=== PATIENT | male | born 1955 | race Caucasian/White ===

== ENCOUNTER 2016-06-09 20:05 | Emergency (ER) | payer MEDICARE ==
--- NOTE | 2016-06-09 20:49 | Emergency Department Record ---
History of Present Illness - General Chief complaint: Rash Stated complaint: SORES ON HANDS Time Seen by Provider: 06/09/16 20:43 Source: Patient Mode of Arrival: Ambulatory - History of Present Illness Initial comments: The patient states he gets this rash on his hands intermittently which is itchy and occasionally peels. HE sees Dr. Faust [employer] [employer] Gl[employer] Operator for it, has cream at home, but when it flares up like this he usually gets a shot of steroids and a prescription of prednisone to taper. He has the cream at home and will start using it and call his [employer] Gl[employer] Operator for a recheck. His tetanus is UTD. Onset/Timin -: Days(s) Hx Tetanus Toxoid Vaccination: Yes Year of Tetanus Vaccination: unsure Location: L hand, R hand Context: Other Associated symptoms: Itching Treatments Prior to Arrival: OTC topical medication - Related Data Home Medications Medication Instructions Recorded Confirmed Last Taken Alprazolam [Xanax Xr] 5 mg PO QID 05/06/14 06/09/16 10/28/15 Hydrocodone/Acetaminophen [Vicodin 1 tab PO Q6H PRN 10/20/14 06/09/16 10/28/15 5mg/300mg] Citalopram Hydrobromide 20 mg PO DAILY 10/22/15 06/09/16 10/28/15 [Citalopram HBr] Albuterol Sulfate [Proair Hfa] 1 - 2 puff IH .EVERY 4-6 HOURS PRN 10/31/1506/09 Unknown Previous Rx's Medication Instructions Recorded Triamcinolone Acet Cream [Kenalog 1 apply TP BID #30 tube 06/23/15 Cream] Sucralfate [Carafate] 1 gm PO QID #28 tablet 10/30/15 Ondansetron [Zofran Odt] 4 mg PO Q8H PRN #30 tab.rapdis 11/01/15 Pantoprazole Sodium [Protonix] 40 mg PO DAILY #30 tablet. 11/01/15 Prednisone [Prednisone 20Mg] 20 mg PO DAILY #20 tab 06/09/16 Allergies Allergy/AdvReac Type Severity Reaction Status Date / Time Penicillins Allergy Unknown RASH Verified 01/06/15 13:19 Sulfa (Sulfonamide Allergy RASH Verified 01/06/15 13:19 Antibiotics) Travel Screening - Travel/Exposure Within Last 30 Days Have you traveled within the last 30 days?: No Review of Systems Reviewed: No additional complaints except as noted below Constitutional: Reports: As per HPI. Denies: Chills, Fever, Malaise, Night sweats, Weakness, Weight change Eyes: Reports: As per HPI. Denies: Eye discharge, Eye pain, Photophobia, Vision change ENT: Reports: As per HPI. Denies: Congestion, Dental pain, Ear pain, Epistaxis , Hearing loss, Throat pain Respiratory: Reports: As per HPI. Denies: Cough, Dyspnea, Hemoptysis, Stridor, Wheezes Cardiovascular: Reports: As per HPI. Denies: Arrhythmia, Chest pain, Dyspnea on exertion, Edema, Murmurs, Orthopnea, Palpitations, Paroxysmal nocturnal dyspnea, Rheumatic Fever, Syncope Endocrine: Reports: As per HPI. Denies: Fatigue, Heat or cold intolerance, Polydipsia, Polyuria Gastrointestinal: Reports: As per HPI. Denies: Abdominal pain, Constipation, Diarrhea, Hematemesis, Hematochezia, Melena, Nausea, Vomiting Genitourinary: Reports: As per HPI. Denies: Dysuria, Frequency, Hematuria, Incontinence, Retention, Testicular pain, Testicular mass, Urgency Musculoskeletal: Reports: As per HPI. Denies: Arthralgia, Back pain, Gout, Joint swelling, Myalgia, Neck pain Skin: Reports: As per HPI. Denies: Bruising, Change in color, Change in hair/ nails, Lesions, Pruritus, Rash Neurological: Reports: As per HPI. Denies: Abnormal gait, Confusion, Headache, Numbness, Paresthesias, Seizure, Tingling, Tremors, Vertigo, Weakness Psychiatric: Reports: As per HPI. Denies: Anxiety, Auditory hallucinations, Depression, Homicidal thoughts, Suicidal thoughts, Visual hallucinations Hematological/Lymphatic: Reports: As per HPI. Denies: Anemia, Blood Clots, Easy bleeding, Easy bruising, Swollen glands Past Medical History - SOCIAL HISTORY Smoking Status: Never smoker Alcohol Use: None Drug Use: None - RESPIRATORY Hx Respiratory Disorders: Yes Hx Asthma: Yes - CARDIOVASCULAR Hx Cardio Disorders: No - NEURO Hx Neuro Disorders: No - GI Hx GI Disorders: Yes Hx Abdominal Pain: Yes (epigastric) Hx Reflux: Yes Hx Nausea/Vomiting: Yes Hx Wt Loss/Wt Gain: Yes Comment:: down 9 pounds over last two weeks - Hx Genitourinary Disorders: No - ENDOCRINE Hx Endocrine Disorders: No Hx Diabetes: No Hx Thyroid Disease: No - MUSCULOSKELETAL Hx Musculoskeletal Disorders: Yes Hx Arthritis: Yes (Bilateral knee) - PSYCH Hx Psych Problems: Yes Hx Anxiety: Yes Hx Depression: Yes - HEMATOLOGY/ONCOLOGY Hx Hematology/Oncology Disorders: No Family Medical History Any Significant Family History?: Yes Hx Cancer: Mother, Grandparents Hx Heart Disease: Father, Brother/Sister Physical Exam - General General Appearance: Alert, Oriented x3, Cooperative, No acute distress - Head Head exam: Normal inspection - Eye Eye exam: Normal appearance, PERRL Pupils: Normal accommodation - ENT ENT exam: Normal exam, Mucous membranes moist, Normal external ear exam, Normal orophraynx, TM's normal bilaterally Ear exam: Normal external inspection. negative: External canal tenderness Nasal Exam: Normal inspection. negative: Discharge, Sinus tenderness Mouth exam: Normal external inspection, Tongue normal Teeth exam: Normal inspection. negative: Dental caries Throat exam: Normal inspection. negative: Tonsillar erythema, Tonsillar exudate - Neck Neck exam: Normal inspection, Full ROM. negative: Tenderness - Respiratory Respiratory exam: Normal lung sounds bilaterally. negative: Respiratory distress - Cardiovascular Cardiovascular Exam: Regular rate, Normal rhythm, Normal heart sounds - GI/Abdominal GI/Abdominal exam: Soft, Normal bowel sounds. negative: Tenderness - Rectal Rectal exam: Deferred - exam: Deferred - Extremities Extremities exam: Normal inspection, Full ROM, Normal capillary refill, Other ( pruritic rash with peeling on right hand, no cellulitis, sparing the proximal forearms. ). negative: Tenderness - Back Back exam: Reports: Normal inspection, Full ROM. Denies: Muscle spasm, Rash noted, Tenderness - Neurological Neurological exam: Alert, Normal gait, Oriented X3, Reflexes normal - Psychiatric Psychiatric exam: Normal affect, Normal mood - Skin Skin exam: Dry, Intact, Normal color, Warm Course Vital Signs 06/09/16 20:28 Temperature 98.3 F Pulse Rate 101 H Respiratory 18 Rate Blood Pressure 125/94 Pulse Ox 95 Disposition Disposition: Discharge Clinical Impression: Vesicular hand eczema Disposition: Home, Self-Care Condition: (1) Good Instructions: Acute Rash (ED), Urticaria (ED) Additional Instructions: Apply prescription cream to hands as directed. Follow up with your [employer] Gl[employer] Operator as before. Take prednisone taper as instructed. Prescriptions: Prednisone [Prednisone 20Mg] 20 mg PO DAILY #20 tab Forms: Patient Portal Access
[2016-06-09] MEDS ORDERED: METHYLPREDNISOLONE PF 125MG/VIAL IM ONE (20:51)
== END 2016-06-09 21:10 | disposition home or self-care (01) ==
LOC: ER 20:05
DX: L30.1 Dyshidrosis [pompholyx] (principal)
CPT/HCPCS: 96372; 99283; J2930

== ENCOUNTER 2017-03-28 03:10 | Emergency (ER) | payer MEDICARE ==
--- NOTE | 2017-03-28 03:32 | Emergency Department Record ---
History of Present Illness - General Chief complaint: Flu Like Symptoms Stated complaint: FLU LIKE SYMPTOMS Time Seen by Provider: 03/28/17 03:28 Source: Patient Mode of Arrival: Ambulatory Limitations: No limitations - History of Present Illness Initial comments: 61 yo male presents to ED for evaluation of nausea, chills, and body aches that began last evening. Patient denies abdominal pain symptoms or productive cough symptoms, denies rash symptoms. Patient denies chest pain or difficultly in breathing symptoms. Patient reports "I think I have the flu". MD Complaint: Generalized weakness Onset/Timin -: Hour(s) Location: Generalized Severity: Moderate Quality: Aching Consistency: Constant Improves with: None Context: History of similar, Other - Zeina Coma Scale Eye Response: (4) Open spontaneously Motor Response: (6) Obeys commands Verbal Response: (5) Oriented Ze[place] Total: 15 - Related Data Home Medications Medication Instructions Recorded Confirmed Last Taken Levothyroxine Sodium 100 mcg PO QAM 03/28/17 03/28/17 03/28/17 Previous Rx's Medication Instructions Recorded Clindamycin HCl 300 mg PO QID #28 capsule 03/28/17 Allergies Allergy/AdvReac Type Severity Reaction Status Date / Time Penicillins Allergy Unknown RASH Verified 01/06/15 13:19 Sulfa (Sulfonamide Allergy RASH Verified 01/06/15 13:19 Antibiotics) Travel Screening - Travel/Exposure Within Last 30 Days Have you traveled within the last 30 days?: No - Travel Symptoms Symptom Screening: Headache, Weakness Review of Systems Constitutional: Reports: Chills, Malaise, Weakness. Denies: Fever, Night sweats Eyes: Denies: Eye discharge, Eye pain ENT: Denies: Congestion, Ear pain, Epistaxis Respiratory: Denies: Cough, Dyspnea Cardiovascular: Denies: Chest pain, Dyspnea on exertion Endocrine: Denies: Fatigue, Heat or cold intolerance Gastrointestinal: Reports: Nausea. Denies: Vomiting Genitourinary: Denies: Incontinence, Retention Musculoskeletal: Denies: Arthralgia, Back pain, Gout, Joint swelling Skin: Denies: Bruising, Change in color Neurological: Denies: Abnormal gait, Confusion, Headache, Seizure Psychiatric: Denies: Anxiety Hematological/Lymphatic: Denies: Anemia, Blood Clots Past Medical History - SOCIAL HISTORY Smoking Status: Never smoker Alcohol Use: None Drug Use: None - RESPIRATORY Hx Respiratory Disorders: Yes Hx Asthma: Yes - CARDIOVASCULAR Hx Cardio Disorders: No - NEURO Hx Neuro Disorders: No - GI Hx GI Disorders: Yes Hx Abdominal Pain: Yes (epigastric) Hx Reflux: Yes Hx Nausea/Vomiting: Yes Hx Wt Loss/Wt Gain: Yes - Hx Genitourinary Disorders: No - ENDOCRINE Hx Endocrine Disorders: No Hx Diabetes: No Hx Thyroid Disease: No - MUSCULOSKELETAL Hx Musculoskeletal Disorders: Yes Hx Arthritis: Yes (Bilateral knee) - PSYCH Hx Psych Problems: Yes Hx Anxiety: Yes Hx Depression: Yes - HEMATOLOGY/ONCOLOGY Hx Hematology/Oncology Disorders: No Family Medical History Any Significant Family History?: Yes Hx Cancer: Mother, Grandparents Hx Heart Disease: Father, Brother/Sister Physical Exam - General General Appearance: Alert, Oriented x3, Cooperative, Mild distress Limitations: No limitations - Head Head exam: Atraumatic, Normocephalic, Normal inspection Head exam detail: negative: Abrasion, Contusion, Shaw's sign, General tenderness, Hematoma, Laceration - Eye Eye exam: Normal appearance. negative: Conjunctival injection, Periorbital swelling, Periorbital tenderness, Scleral icterus - ENT Ear exam: negative: Auricular hematoma, Auricular trauma Nasal Exam: negative: Active bleeding, Discharge, Dried blood, Foreign body Mouth exam: negative: Drooling, Laceration, Muffled voice, Tongue elevation Teeth exam: Dental caries - Neck Neck exam: Normal inspection. negative: Meningismus, Tenderness - Respiratory Respiratory exam: Normal lung sounds bilaterally. negative: Rales, Respiratory distress, Rhonchi, Stridor - Cardiovascular Cardiovascular Exam: Normal rhythm, Normal heart sounds, Tachycardia - GI/Abdominal GI/Abdominal exam: Soft. negative: Rebound, Rigid, Tenderness - Rectal Rectal exam: Deferred - exam: Deferred - Extremities Extremities exam: Normal inspection. negative: Calf tenderness, Pedal edema, Tenderness - Back Back exam: Denies: CVA tenderness (R), CVA tenderness (L) - Neurological Neurological exam: Alert, Normal gait, Oriented X3 - Psychiatric Psychiatric exam: Normal affect, Normal mood - Skin Skin exam: Normal color. negative: Abrasion Type of lesion: negative: abrasion Course Vital Signs 03/28/17 03:17 Temperature 98.7 F Pulse Rate [ 115 H Pulse Ox Probe] Respiratory 16 Rate Blood Pressure 125/91 [Left Arm] Pulse Ox 97 - Reevaluation(s) Reevaluation #1: 03/28/17 03:51 EKG: Sinus tachycardia 103 LAD, normal intervals No acute ST-T wave changes are present Overall similar to 01/31/2008. Reevaluation #2: 03/28/17 04:04 Labs reviewed, WBC 18.8 with 94% neutrophils, influenza appears negative. UA pending, labs are otherwise grossly unremarkable for an acute process. Pulse is down to 105. Repeat examination reveals a non-tender abdominal examination and no evidence for cellulitis or septic joint on examination. Will continue to observe. Reevaluation #3: 03/28/17 04:46 UA reviewed and appears negative for infection, cultures have been drawn. Patient reassessed and reports that he is feeling much better. I discussed admission to administer BS antibiotics via IV as the source of the patient's infection is yet unknown and cultures are pending. Patient declined admission stating that he wants to go home, but is willing to return in 12-24 hours for reassessment. Will initiate treatment with Clindamcyin as the patient is allergic to PCN (augmentin was 1st choice), and have the patient return for re- evaluation in 12-24 hours as discussed. Patient agrees with plan as discussed. Medical Decision Making - Lab Data Result diagrams: 03/28/17 03:35 03/28/17 03:35 Disposition Disposition: Discharge Clinical Impression: Myalgia Fever Qualifiers: Fever type: unspecified Qualified Code(s): R50.9 - Fever, unspecified Leukocytosis Qualifiers: Leukocytosis type: unspecified Qualified Code(s): D72.829 - Elevated white blood cell count, unspecified Disposition: Home, Self-Care Condition: (2) Stable Instructions: Fever in Adults (ED) Additional Instructions: Return to ED in 12-24 hours for re-evaluation of your fever symptoms. Clindamycin as directed. Follow-up with your family doctor in 1-3 days as directed. Prescriptions: Clindamycin HCl 300 mg PO QID #28 capsule Forms: Patient Portal Access Time of Disposition: 04:51 Quality - Quality Measures Quality Measures: N/A - Blood Pressure Screening Does Patient Have Any of the Following: No Blood Pressure Classification: Pre-Hypertensive BP Reading Systolic Measurement: 116 Diastolic Measurement: 84 Screening for High Blood Pressure: < Pre-Hypertensive BP, F/U Documented > [ G8950] Pre-Hypertensive Follow-up Interventions: Referral to alternative/primary care provider.
[2017-03-28] MEDS: ONDANSETRON HCL IV 4 MG/2 ML VIAL IVP ONE (03:37)
[2017-03-28] MEDS: 0.9 % SODIUM CHLORIDE 1000ML 1,000 ML IV SCH ×2 (03:37→04:45)
[2017-03-28 03:41] LABS: BASO % 0.2 % (0-6); EOS % 1.2 % (0-6); HEMATOCRIT 41.1 % (42.0-52.0); HEMOGLOBIN 13.6 gm/dl (14.0-18.0); MEAN CELL VOLUME 89.5 fl (81-97); MEAN CORPUSCULAR HEMOGLOBIN 29.6 pg (27-33); MEAN CORPUSCULAR HGB CONC 33.1 g/dl (32-36); MEAN PLATELET VOLUME 8.5 fl (7.4-10.4); MONO % 4.3 % (0-9); PLATELET COUNT 287 K/uL (130-400); RED BLOOD COUNT 4.59 M/uL (4.40-5.70); RED CELL DISTRIBUTION WIDTH 14.6 % (11.5-14.5); WHITE BLOOD COUNT W/O DIFF 18.8 K/uL (4.2-12.2)
[2017-03-28 03:54] LABS: INFLUENZA A NEGATIVE (NEGATIVE); INFLUENZA B NEGATIVE (NEGATIVE)
[2017-03-28 03:57] LABS: BLOOD UREA NITROGEN 16 mg/dL (8-23); CREATININE 1.1 mg/dL (0.7-1.2); EST GLOMERULAR FILTRATION RATE > 60 mL/min; GLUCOSE,RANDOM 115 mg/dL (74-109); TOTAL PROTEIN 7.2 g/dL (6.6-8.7)
[2017-03-28 04:00] LABS: ALB/GLOB RATIO 1.3 (1.1-1.8); ALBUMIN 4.1 g/dL (4.0-5.0); ALKALINE PHOSPHATASE 74 U/L (40-129); ALT/SGPT 21 U/L (<41); AST/SGOT 25 U/L (10.0-50.0)
[2017-03-28] MEDS: ACETAMINOPHEN 500 MG TABLET PO ONE (04:09)
[2017-03-28 04:15] LABS: URINE APPEARANCE CLEAR; URINE BILIRUBIN SMALL (NEGATIVE); URINE BLOOD TRACE-I (NEGATIVE); URINE COLOR YELLOW; URINE GLUCOSE (UA) NEGATIVE (NEGATIVE); URINE KETONE NEGATIVE (NEGATIVE); URINE LEUKOCYTE ESTERASE NEGATIVE (NEGATIVE); URINE NITRITE NEGATIVE (NEGATIVE); URINE PROTEIN NEGATIVE (NEGATIVE); URINE UROBILINOGEN 0.2 E.U./dL (0.20 - 1.00)
[2017-03-28 04:22] LABS: URINE BACTERIA NONE SEEN; URINE EPITHELIAL CELLS 0 - 2 (FEW); URINE RBC 0 - 2 (NONE SEEN); URINE WBC 0 - 2 (0-2/hpf)
[2017-03-28] MEDS: CLINDAMYCIN 600MG/50ML PREMIX 600 MG/50 ML BAG IVPB ONE (04:45)
--- NOTE | 2017-03-29 09:15 | RADIOLOGY REPORT ---
EXAM: CHEST, TWO VIEWS HISTORY: FLU LIKE SYMPTOMS FOR ONE DAY. TECHNIQUE: Two views of the chest were obtained. Comparison: Chest x-ray 10/30/15. FINDINGS: Fine linear scarring left base. The lungs are clear. The cardiac silhouette, diaphragm, and osseous structures are unremarkable for age . IMPRESSION: NEGATIVE CHEST EXAMINATION. JOB NUMBER: [id number] MTDD
== END 2017-03-28 05:35 | disposition home or self-care (01) ==
LOC: ER 03:10
DX: R50.9 Fever, unspecified (principal); M79.1 Myalgia; R53.1 Weakness; R05 Cough; D72.829 Elevated white blood cell count, unspecified; R11.0 Nausea; R51 Headache; L02.224 Furuncle of groin; B34.9 Viral infection, unspecified; R19.7 Diarrhea, unspecified
CPT/HCPCS: 99283 ×2; 99284 ×2; 96365; 96375; 83605; 80048; 80053; 81001; 87400; 85027; 71020; 93005; 93010; J2405; J7030

== ENCOUNTER 2017-03-28 16:21 | Emergency (ER) | payer MEDICARE ==
--- NOTE | 2017-03-28 16:49 | Emergency Department Record ---
History of Present Illness - General Chief Complaint: Recheck - Other Stated Complaint: RETURN CHECK Time Seen by Provider: 03/28/17 16:34 Source: Patient - History of Present Illness Initial Comments: patient here for a recheck of his fever and he is feeling better today but having diarrhea times two stools and today he is drinking fluids and he ate eggs for breakfast and today at noon he took two tylenol pills. No headache and no congestion and no cough. No vomiting. Patient hasn't picked up his clindamycin pills yet. he left here at 5:30 am today. Patient has a small ingrown hair left groin no abscess red and looks like it drained already spontaneously. Teeth are in bad repair Onset/Timin -: Days(s) Initial Visit For: Other Symptoms Since Prior Visit: No new symptoms Associated Symptoms: Fever - Related Data Previous Rx's Medication Instructions Recorded Clindamycin HCl 300 mg PO QID #28 capsule 03/28/17 Allergies Allergy/AdvReac Type Severity Reaction Status Date / Time Penicillins Allergy Unknown RASH Verified 03/28/17 16:28 Sulfa (Sulfonamide Allergy RASH Verified 03/28/17 16:28 Antibiotics) Travel Screening - Travel/Exposure Within Last 30 Days Have you traveled within the last 30 days?: No Review of Systems Reviewed: No additional complaints except as noted below Constitutional: Reports: As per HPI, Weakness. Denies: Chills, Fever, Malaise, Night sweats, Weight change Eyes: Reports: As per HPI. Denies: Eye discharge, Eye pain, Photophobia, Vision change ENT: Reports: As per HPI. Denies: Congestion, Dental pain, Ear pain, Epistaxis , Hearing loss, Throat pain Respiratory: Reports: As per HPI. Denies: Cough, Dyspnea, Hemoptysis, Stridor, Wheezes Cardiovascular: Reports: As per HPI. Denies: Arrhythmia, Chest pain, Dyspnea on exertion, Edema, Murmurs, Orthopnea, Palpitations, Paroxysmal nocturnal dyspnea, Rheumatic Fever, Syncope Endocrine: Reports: As per HPI. Denies: Fatigue, Heat or cold intolerance, Polydipsia, Polyuria Gastrointestinal: Reports: As per HPI, Diarrhea. Denies: Abdominal pain, Constipation, Hematemesis, Hematochezia, Melena, Nausea, Vomiting Genitourinary: Reports: As per HPI. Denies: Dysuria, Frequency, Hematuria, Incontinence, Retention, Testicular pain, Testicular mass, Urgency Musculoskeletal: Reports: As per HPI. Denies: Arthralgia, Back pain, Gout, Joint swelling, Myalgia, Neck pain Skin: Reports: As per HPI. Denies: Bruising, Change in color, Change in hair/ nails, Lesions, Pruritus, Rash Neurological: Reports: As per HPI. Denies: Abnormal gait, Confusion, Headache, Numbness, Paresthesias, Seizure, Tingling, Tremors, Vertigo, Weakness Psychiatric: Reports: As per HPI. Denies: Anxiety, Auditory hallucinations, Depression, Homicidal thoughts, Suicidal thoughts, Visual hallucinations Hematological/Lymphatic: Reports: As per HPI. Denies: Anemia, Blood Clots, Easy bleeding, Easy bruising, Swollen glands Past Medical History - SOCIAL HISTORY Smoking Status: Never smoker Alcohol Use: None Drug Use: None - RESPIRATORY Hx Respiratory Disorders: Yes Hx Asthma: Yes - CARDIOVASCULAR Hx Cardio Disorders: No - NEURO Hx Neuro Disorders: No - GI Hx GI Disorders: Yes Hx Abdominal Pain: Yes (epigastric) Hx Reflux: Yes Hx Nausea/Vomiting: Yes Hx Wt Loss/Wt Gain: Yes - Hx Genitourinary Disorders: No - ENDOCRINE Hx Endocrine Disorders: No Hx Diabetes: No Hx Thyroid Disease: No - MUSCULOSKELETAL Hx Musculoskeletal Disorders: Yes Hx Arthritis: Yes (Bilateral knee) - PSYCH Hx Psych Problems: Yes Hx Anxiety: Yes Hx Depression: Yes - HEMATOLOGY/ONCOLOGY Hx Hematology/Oncology Disorders: No Family Medical History Any Significant Family History?: Yes Hx Cancer: Mother, Grandparents Hx Heart Disease: Father, Brother/Sister Physical Exam - General General Appearance: Alert, Oriented x3, Cooperative, No acute distress - Head Head exam: Normal inspection - Eye Eye exam: Normal appearance, PERRL Pupils: Normal accommodation - ENT ENT exam: Normal exam, Mucous membranes moist, Normal external ear exam, Normal orophraynx, TM's normal bilaterally Ear exam: Normal external inspection. negative: External canal tenderness Nasal Exam: Normal inspection. negative: Discharge, Sinus tenderness Mouth exam: Normal external inspection, Tongue normal Teeth exam: Normal inspection. negative: Dental caries Throat exam: Normal inspection. negative: Tonsillar erythema, Tonsillar exudate - Neck Neck exam: Normal inspection, Full ROM. negative: Tenderness - Respiratory Respiratory exam: Normal lung sounds bilaterally. negative: Respiratory distress - Cardiovascular Cardiovascular Exam: Regular rate, Normal rhythm, Normal heart sounds - GI/Abdominal GI/Abdominal exam: Soft, Normal bowel sounds. negative: Tenderness - Rectal Rectal exam: Deferred - exam: Deferred - Extremities Extremities exam: Normal inspection, Full ROM, Normal capillary refill. negative: Tenderness - Back Back exam: Reports: Normal inspection, Full ROM. Denies: Muscle spasm, Rash noted, Tenderness - Neurological Neurological exam: Alert, Normal gait, Oriented X3, Reflexes normal - Psychiatric Psychiatric exam: Normal affect, Normal mood - Skin Skin exam: Other (small furuncle in the left groin, no cellulitis and scab on top) Course Vital Signs 03/28/17 16:29 Temperature 97.7 F Pulse Rate 84 Respiratory 20 Rate Blood Pressure 118/73 Pulse Ox 98 - Reevaluation(s) Reevaluation #1: patient is doing better 03/28/17 17:23 Medical Decision Making - Data Complexity MDM Data: Labs Ordered and/or Reviewed (WBC down to 16,000), X-Ray Ordered and/ or Reviewed (reviewed chest xray from 3 am negative) - Lab Data Result diagrams: 03/28/17 16:55 03/28/17 16:55 Disposition Clinical Impression: Viral syndrome, Furuncle Disposition: Home, Self-Care Condition: (1) Good Instructions: Acute Diarrhea (ED) Additional Instructions: follow up with Dr. 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
[2017-03-28 17:01] LABS: HEMATOCRIT 37.3 % (42.0-52.0); HEMOGLOBIN 12.2 gm/dl (14.0-18.0); MEAN CELL VOLUME 89.9 fl (81-97); MEAN CORPUSCULAR HEMOGLOBIN 29.3 pg (27-33); MEAN CORPUSCULAR HGB CONC 32.7 g/dl (32-36); MEAN PLATELET VOLUME 8.5 fl (7.4-10.4); PLATELET COUNT 263 K/uL (130-400); RED BLOOD COUNT 4.15 M/uL (4.40-5.70); RED CELL DISTRIBUTION WIDTH 14.7 % (11.5-14.5)
[2017-03-28 17:20] LABS: BLOOD UREA NITROGEN 15 mg/dL (8-23); EST GLOMERULAR FILTRATION RATE > 60 mL/min; GLUCOSE,RANDOM 111 mg/dL (74-109)
== END 2017-03-28 17:39 | disposition home or self-care (01) ==
LOC: ER 16:21
DX: B34.9 Viral infection, unspecified (principal); R19.7 Diarrhea, unspecified; L02.224 Furuncle of groin
CPT/HCPCS: 80048; 85027

== ENCOUNTER 2019-03-17 04:05 | Emergency (ER) | payer MEDICARE ==
[2019-03-17] MEDS ORDERED: ONDANSETRON HCL IV 4 MG/2 ML VIAL IVP ONE (04:25)
--- NOTE | 2019-03-17 04:30 | Emergency Department Record ---
History of Present Illness - General Chief Complaint: Dizziness Stated Complaint: DOESNT FEEL GOOD Time Seen by Provider: 03/17/19 04:24 Source: Patient Mode of Arrival: Ambulatory Limitations: No limitations - History of Present Illness Initial Comments: 63 yo male presents to ED for evaluation of nausea symptoms that he awoke with 1 hour ago, denies pain, vomiting, or loose stools. Patient reports a history of "stomach problems" that he takes a pill for, cannot provide further detail. Patient denies history of abdominal surgery, denies chest pain or diaphoresis. Patient denies flank pain or urinary symptoms. MD Complaint: Other (Nausea) Onset/Timin -: Hour(s) Timing: Awoke with symptoms History of Same: No History of Trauma: No Severity: Moderate Improves With: Nothing Worsens With: Nothing Associated Symptoms: Denies other symptoms - Zeina Coma Scale Eye Response: (4) Open spontaneously Motor Response: (6) Obeys commands Verbal Response: (5) Oriented Zeina Total: 15 - Related Data Allergies Allergy/AdvReac Type Severity Reaction Status Date / Time Penicillins Allergy Unknown RASH Verified 03/28/17 16:28 Sulfa (Sulfonamide Allergy RASH Verified 03/28/17 16:28 Antibiotics) Travel Screening - Travel/Exposure Within Last 30 Days Have you traveled within the last 30 days?: No - Travel/Exposure Within Last Year Have you traveled outside the [place] in the last year?: No - Additonal Travel Details Have you been exposed to anyone with a communicable illness?: No - Travel Symptoms Symptom Screening: None Review of Systems Constitutional: Denies: Chills, Fever, Malaise, Night sweats Eyes: Denies: Eye discharge, Eye pain ENT: Denies: Congestion, Ear pain, Epistaxis Respiratory: Denies: Cough, Dyspnea Cardiovascular: Denies: Chest pain, Dyspnea on exertion Endocrine: Denies: Fatigue, Heat or cold intolerance Gastrointestinal: Reports: Abdominal pain, Nausea. Denies: Constipation, Vomiting Genitourinary: Denies: Incontinence, Retention Musculoskeletal: Denies: Arthralgia, Back pain Skin: Denies: Bruising, Change in color Neurological: Denies: Abnormal gait, Confusion, Headache, Seizure Psychiatric: Denies: Anxiety Hematological/Lymphatic: Denies: Anemia, Blood Clots Past Medical History - SOCIAL HISTORY Smoking Status: Never smoker Alcohol Use: None Drug Use: None - RESPIRATORY Hx Respiratory Disorders: Yes Hx Asthma: Yes - CARDIOVASCULAR Hx Cardio Disorders: No - NEURO Hx Neuro Disorders: No - GI Hx GI Disorders: Yes Hx Abdominal Pain: Yes (epigastric) Hx Reflux: Yes Hx Nausea/Vomiting: Yes Hx Wt Loss/Wt Gain: Yes - Hx Genitourinary Disorders: No - ENDOCRINE Hx Endocrine Disorders: No Hx Diabetes: No Hx Thyroid Disease: No - MUSCULOSKELETAL Hx Musculoskeletal Disorders: Yes Hx Arthritis: Yes (Bilateral knee) - PSYCH Hx Psych Problems: Yes Hx Anxiety: Yes Hx Depression: Yes - HEMATOLOGY/ONCOLOGY Hx Hematology/Oncology Disorders: No Family Medical History Any Significant Family History?: Yes Hx Cancer: Mother, Grandparents Hx Heart Disease: Father, Brother/Sister Physical Exam - General General Appearance: Alert, Oriented x3, Cooperative, Mild distress Limitations: No limitations - Head Head exam: Atraumatic, Normocephalic, Normal inspection Head exam detail: negative: Abrasion, Contusion, Shaw's sign, General tenderness, Hematoma, Laceration - Eye Eye exam: Normal appearance. negative: Conjunctival injection, Periorbital swelling, Periorbital tenderness, Scleral icterus - ENT Ear exam: negative: Auricular hematoma, Auricular trauma Nasal Exam: negative: Active bleeding, Discharge, Dried blood, Foreign body Mouth exam: negative: Drooling, Laceration, Muffled voice, Tongue elevation - Neck Neck exam: Normal inspection. negative: Meningismus, Tenderness - Respiratory Respiratory exam: Normal lung sounds bilaterally. negative: Rales, Respiratory distress, Rhonchi, Stridor - Cardiovascular Cardiovascular Exam: Regular rate, Normal rhythm, Normal heart sounds - GI/Abdominal GI/Abdominal exam: Soft. negative: Rebound, Rigid, Tenderness - Rectal Rectal exam: Deferred - exam: Deferred - Extremities Extremities exam: Normal inspection. negative: Pedal edema, Tenderness - Back Back exam: Denies: CVA tenderness (R), CVA tenderness (L) - Neurological Neurological exam: Alert, Normal gait, Oriented X3 - Psychiatric Psychiatric exam: Normal affect, Normal mood - Skin Skin exam: Normal color. negative: Abrasion Type of lesion: negative: abrasion Course Vital Signs 03/17/19 04:14 Temperature 99.1 F Pulse Rate [ 110 H Left] Respiratory 20 Rate Blood Pressure 169/81 [Left Arm] Pulse Ox 98 - Reevaluation(s) Reevaluation #1: 03/17/19 06:01 Laboratory studies were reviewed and appear grossly unremarkable for an acute process except for the following: WBC 18.7 with 95% Neutrophils Hgb 12 Influenza negative 0.9% NS 1 Liter ordered to infuse Blood cultures ordered CXR ordered. Temperature increased to 101.5 Motrin 800 mg/Tylenol 1000 mg ordered as well. Reevaluation #2: 03/17/19 06:03 CT Abdomen and Pelvis: No acute process 03/17/19 06:09 Patient was updated on his CT imaging result and laboratory study results. Patient reports that he needs to leave at this time to go to [place] "as I need to see someone", "my girlfriend stepped out on me". Following discussion with the patient regarding further evaluation and treatment for his fever, patient reports that they wants to leave AMA at this time. Risks of , permanent impairment, or worsening of their current condition were discussed as well as the benefit of further evaluation of his fever symptoms. Patient verbalizes understanding of all risks and benefits, desires to leave AMA despite these risks. Based on my examination, the patient is alert, oriented, and answers all questions appropriately. Patient appears to have the capacity to make rational decisions based on my examination. Patient was encouraged to return to the ED immediately if they change their mind about treatment and want to be re-evaluated. Patient reports that he will return if he feels worse. Medical Decision Making - Lab Data Result diagrams: 03/17/19 04:30 03/17/19 04:30 Disposition Disposition: Discharge Clinical Impression: Nausea, Fever in adult Disposition: Against Medical Advice Condition: (2) Stable Instructions: Fever in Adults (ED) Additional Instructions: Return to ED if your symptoms worsen or if you have any concerns. Tylenol/Motrin as directed. Follow-up with your family doctor in 1-3 days as directed. Forms: Patient Portal Access Time of Disposition: 06:13 Quality - Quality Measures Quality Measures: N/A - Blood Pressure Screening Does Patient Have Any of the Following: Active Dx of HTN Blood Pressure Classification: Hypertensive Reading Systolic Measurement: 183 Diastolic Measurement: 97 Screening for High Blood Pressure: Patient Exclusion, Hx of HTN [[id number]]
[2019-03-17 05:01] LABS: INFLUENZA A NEGATIVE (NEGATIVE); INFLUENZA B NEGATIVE (NEGATIVE)
[2019-03-17 05:14] LABS: BILIRUBIN,TOTAL 0.6 mg/dL (0.2-1.0); CREATININE 1.3 mg/dL (0.7-1.2); TOTAL PROTEIN 7.2 g/dL (6.6-8.7)
[2019-03-17 05:19] LABS: ALB/GLOB RATIO 1.4 (1.1-1.8); ALBUMIN 4.2 g/dL (4.0-5.0)
[2019-03-17 05:25] LABS: ABSOLUTE NEUTROPHIL COUNT 17.82; BASO % 0.1 % (0-6); EOS % 0.3 % (0-6); HEMATOCRIT 37.8 % (42.0-52.0); LYMPH % 1.8 % (16-45); MEAN CELL VOLUME 95.5 fl (81-97); MEAN CORPUSCULAR HEMOGLOBIN 30.3 pg (27-33); MEAN CORPUSCULAR HGB CONC 31.7 g/dl (32-36); MEAN PLATELET VOLUME 8.9 fl (7.4-10.4); MONO % 2.5 % (0-9); PLATELET COUNT 344 K/uL (130-400); RED BLOOD COUNT 3.96 M/uL (4.40-5.70); RED CELL DISTRIBUTION WIDTH 14.7 % (11.5-14.5); WHITE BLOOD COUNT W/O DIFF 18.7 K/uL (4.2-12.2)
[2019-03-17 05:37] LABS: PLATELET ESTIMATE NORMAL (NORMAL)
--- NOTE | 2019-03-17 05:57 | CT SCAN REPORT ---
EXAMINATION: CT Abdomen and Pelvis with IV Contrast EXAM DATE: 03/17/2019 5:48 AM TECHNIQUE: CT imaging of the abdomen and pelvis was performed with intravenous contrast. Coronal and sagittal images were reconstructed. IV Contrast: The amount and type of contrast are recorded in the medical record. INDICATION: pain, nausea COMPARISON: None ENCOUNTER: Not applicable CT ABDOMEN AND PELVIS FINDINGS: Lung Bases: Sliding-type hiatal hernia Hepatobiliary: The liver has a normal size with a smooth surface. The hepatic and portal veins appear patent. No gallstones Pancreas: The pancreas is normal. Spleen: The spleen is not enlarged. Adrenals: The adrenal glands are normal. Gastrointestinal: The stomach and small bowel are normal with no obstruction or inflammation. The collin endix is visualized and appears normal The large bowel is normal. Reproductive Organs: Unremarkable Lymphatic System: There is no adenopathy within the abdomen or pelvis. Vasculature: Normal caliber abdominal aorta. Peritoneum: No free fluid, free air, or inflammation IMPRESSION: Moderate sliding-type hiatal hernia. No acute abdominal or pelvic disease process Dictated by: Juhi Bray DO on 03/17/2019 5:55 AM. .
[2019-03-17] MEDS ORDERED: IBUPROFEN 400 MG TABLET PO ONE (06:00)
[2019-03-17] MEDS ORDERED: ACETAMINOPHEN 500 MG TABLET PO ONE (06:00)
[2019-03-17] MEDS ORDERED: 0.9 % SODIUM CHLORIDE 1000ML 1,000 ML IV SCH (06:00)
== END 2019-03-17 06:21 | disposition left against medical advice (07) ==
LOC: ER 04:05
DX: R11.0 Nausea (principal); R42 Dizziness and giddiness; R50.9 Fever, unspecified; I10 Essential (primary) hypertension
CPT/HCPCS: 74177; 80053; 83690; 85027; 87400; 96374; 99284; J2405

== ENCOUNTER 2019-03-18 00:04 | Observation (INO) | payer MEDICARE ==
[2019-03-18] MEDS ORDERED: 0.9 % SODIUM CHLORIDE 1000ML 1,000 ML IV SCH (00:15)
--- NOTE | 2019-03-18 00:20 | Emergency Department Record ---
History of Present Illness - General Stated Complaint: LEG INFECTED Time Seen by Provider: 03/18/19 00:07 Source: Patient Mode of Arrival: Wheelchair Limitations: No limitations - History of Present Illness Initial Comments: 63 yo male returns to the ED this morning for evaluation of fever symptoms, was seen and his initail evaluation was preformed 18 hours ago, patient reported he needed to leave prior to completion of his evaluation. Patient reports following his discharge his right lower extremity has become red, warm to the touch. Patient denies cough or urinary symptoms, denies flank or abdominal pain symptoms. MD Complaint: Fever Onset/Timin -: Hour(s) Associated Symptoms: Denies other symptoms Treatments Prior to Arrival: None - Related Data Allergies Allergy/AdvReac Type Severity Reaction Status Date / Time Penicillins Allergy Unknown RASH Verified 03/18/19 00:26 Sulfa (Sulfonamide Allergy RASH Verified 03/18/19 00:26 Antibiotics) Review of Systems Constitutional: Reports: Fever, Malaise. Denies: Chills, Night sweats Eyes: Denies: Eye discharge, Eye pain ENT: Denies: Congestion, Ear pain, Epistaxis Respiratory: Denies: Cough, Dyspnea Cardiovascular: Denies: Chest pain, Dyspnea on exertion Endocrine: Denies: Fatigue, Heat or cold intolerance Gastrointestinal: Denies: Abdominal pain, Nausea, Vomiting Genitourinary: Denies: Incontinence, Retention Musculoskeletal: Denies: Arthralgia, Back pain Skin: Reports: Rash. Denies: Bruising, Change in color Neurological: Denies: Abnormal gait, Confusion, Headache, Seizure Psychiatric: Denies: Anxiety Hematological/Lymphatic: Denies: Anemia, Blood Clots Past Medical History - SOCIAL HISTORY Smoking Status: Never smoker Drug Use: None - RESPIRATORY Hx Respiratory Disorders: Yes Hx Asthma: Yes - CARDIOVASCULAR Hx Cardio Disorders: No - NEURO Hx Neuro Disorders: No - GI Hx GI Disorders: Yes Hx Abdominal Pain: Yes (epigastric) Hx Reflux: Yes Hx Nausea/Vomiting: Yes Hx Wt Loss/Wt Gain: Yes - Hx Genitourinary Disorders: No - ENDOCRINE Hx Endocrine Disorders: No Hx Diabetes: No Hx Thyroid Disease: No - MUSCULOSKELETAL Hx Musculoskeletal Disorders: Yes Hx Arthritis: Yes (Bilateral knee) - PSYCH Hx Psych Problems: Yes Hx Anxiety: Yes Hx Depression: Yes - HEMATOLOGY/ONCOLOGY Hx Hematology/Oncology Disorders: No Family Medical History Hx Cancer: Mother, Grandparents Hx Heart Disease: Father, Brother/Sister Physical Exam - General General Appearance: Alert, Oriented x3, Cooperative, Moderate distress Limitations: No limitations - Head Head exam: Atraumatic, Normocephalic, Normal inspection Head exam detail: negative: Abrasion, Contusion, Shaw's sign, General tenderness, Hematoma, Laceration - Eye Eye exam: Normal appearance. negative: Conjunctival injection, Periorbital swelling, Periorbital tenderness, Scleral icterus - ENT Ear exam: negative: Auricular hematoma, Auricular trauma Nasal Exam: negative: Active bleeding, Discharge, Dried blood, Foreign body Mouth exam: negative: Drooling, Laceration, Muffled voice, Tongue elevation - Neck Neck exam: Normal inspection. negative: Meningismus, Tenderness - Respiratory Respiratory exam: Normal lung sounds bilaterally. negative: Rales, Respiratory distress, Rhonchi, Stridor - Cardiovascular Cardiovascular Exam: Regular rate, Normal rhythm, Normal heart sounds - GI/Abdominal GI/Abdominal exam: Soft. negative: Rebound, Rigid, Tenderness - Rectal Rectal exam: Deferred - exam: Deferred - Extremities Extremities exam: Tenderness, Other (Erythema, warmth to the to the anterior aspect of the right lower leg, no induration or fluctuance is present on examination.). negative: Calf tenderness, Pedal edema - Back Back exam: Denies: CVA tenderness (R), CVA tenderness (L) - Neurological Neurological exam: Alert, Normal gait, Oriented X3 - Psychiatric Psychiatric exam: Normal affect, Normal mood - Skin Skin exam: Erythema. negative: Abrasion Type of lesion: Rash Distribution of rash: RLE Description of rash: Erythematous, Macular Course - Reevaluation(s) Reevaluation #1: 03/18/19 01:11 Laboratory studies were reviewed and appear grossly unremarkable for an acute process except for the following: WBC 15.1, 96% Neutrophils GFR 55 CRP 30 ESR 45 Clindamycin is currently infusing, will admit for further evaluation and treatment for lower extremity cellulitis. Reevaluation #2: 03/18/19 06:50 Case was discussed with Alissa Soto NP, will accept admission at this time. Medical Decision Making - Lab Data Result diagrams: 03/18/19 00:35 03/18/19 00:35 Disposition Disposition: Admit Clinical Impression: Fever in adult, Cellulitis of lower leg Disposition: Still a Patient at [facility] Decision to Admit: Admit from ER Decision to Admit Date: 03/18/19 Decision to Admit Time: : Condition: (2) Stable Time of Disposition: :12 Quality - Quality Measures Quality Measures: N/A - Blood Pressure Screening Does Patient Have Any of the Following: No Blood Pressure Classification: Normal BP Reading Systolic Measurement: 98 Diastolic Measurement: 64 Screening for High Blood Pressure: < Normal BP, F/U Not Required > [G8783]
[2019-03-18] MEDS ORDERED: CLINDAMYCIN 600MG/50ML PREMIX 600 MG/50 ML BAG IVPB ONE (00:43)
[2019-03-18 00:51] LABS: ABSOLUTE NEUTROPHIL COUNT 14.23; BASO % 0.1 % (0-6); HEMATOCRIT 38.2 % (42.0-52.0); HEMOGLOBIN 12.3 gm/dl (14.0-18.0); LYMPH % 3.1 % (16-45); MEAN CORPUSCULAR HGB CONC 32.2 g/dl (32-36); MONO % 2.6 % (0-9); PLATELET COUNT 311 K/uL (130-400); RED BLOOD COUNT 4.02 M/uL (4.40-5.70); RED CELL DISTRIBUTION WIDTH 14.8 % (11.5-14.5); WHITE BLOOD COUNT W/O DIFF 15.1 K/uL (4.2-12.2)
[2019-03-18 00:52] LABS: MEAN CORPUSCULAR HEMOGLOBIN 30.5 pg (27-33)
[2019-03-18 00:55] LABS: BILIRUBIN,TOTAL 0.4 mg/dL (0.2-1.0); CREATININE 1.4 mg/dL (0.7-1.2); TOTAL PROTEIN 7.3 g/dL (6.6-8.7)
[2019-03-18 01:00] LABS: ALB/GLOB RATIO 1.2 (1.1-1.8); C-REACTIVE PROTEIN 30.23 mg/dL (<0.5)
[2019-03-18 01:27] LABS: PLATELET ESTIMATE NORMAL (NORMAL)
[2019-03-18 01:28] LABS: ERYTHROCYTE SEDIMENTATION RATE 45 mm/hr (0-20)
[2019-03-18] MEDS ORDERED: ACETAMINOPHEN 500 MG TABLET PO PRN (02:05)
[2019-03-18] MEDS ORDERED: 0.9 % SODIUM CHLORIDE 1000ML 1,000 ML IV ONE (02:05)
[2019-03-18] MEDS: CLINDAMYCIN 600MG/50ML PREMIX 600 MG/50 ML BAG IVPB SCH ×3 (02:49→16:43)
[2019-03-18] MEDS: LEVOTHYROXINE SODIUM 100 MCG TABLET PO SCH (06:52)
[2019-03-18] MEDS: CITALOPRAM 20 MG TABLET PO SCH (09:17)
[2019-03-18] MEDS: ALPRAZOLAM 0.25 MG TABLET PO SCH ×5 (09:34→22:53)
[2019-03-18] MEDS ORDERED: NYSTATIN 15 GM TUBE TOP SCH (12:45)
--- NOTE | 2019-03-18 12:46 | History & Physical ---
History of Present Illness - Date of Service Date of Service for History & Physical: 03/18/19 - History of Present Illness Admitting Diagnosis: Fever. Cellulitis RLE History of Present Illness: 63 y/o male presented to ED 03/17/19 for nausea, left AMA. It was noted he did have a fever while he was awaiting to finish the visit. He returned 18 hours later for recurrent fever and RLE pain. He does have hx of recurrent RLE cellulitis about 3-4 times per year since having a complicated right total knee replacement about 5 years ago. At that time he had to have the replaced joint removed, an antibiotic impregnated spacer was place and subsequently had a repeat right TKA. He reports had followed up with ID after that and was signed off on. 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 Past medical history includes asthma, GERD, OA bilat knees. While in ED VSS, afebrile. WBC 15.1, neutrophils 96. ESR 45. Lactic acid normal. CRP 30.23. Was admitted for IV antibiotics 03/18/19 1030- resting in bed comfortably, reports pain is under control. Denies chills. Did complain of itchy rash to genital area. PCP: Dr Pedersen Travel Screening - Travel/Exposure Within Last 30 Days Have you traveled within the last 30 days?: No - Travel/Exposure Within Last Year Have you traveled outside the [place] in the last year?: No - Additonal Travel Details Have you been exposed to anyone with a communicable illness?: No - Travel Symptoms Symptom Screening: None Review of Systems Constitutional: Reports: Fever, Malaise. Denies: Chills, Night sweats Eyes: Denies: Eye discharge, Eye pain ENT: Denies: Congestion, Ear pain, Epistaxis Respiratory: Denies: Cough, Dyspnea Cardiovascular: Denies: Chest pain, Dyspnea on exertion Endocrine: Denies: Fatigue, Heat or cold intolerance Gastrointestinal: Denies: Abdominal pain, Nausea, Vomiting Genitourinary: Denies: Incontinence, Retention Musculoskeletal: Denies: Arthralgia, Back pain Skin: Reports: Rash. Denies: Bruising, Change in color Neurological: Denies: Abnormal gait, Confusion, Headache, Seizure Psychiatric: Denies: Anxiety Hematological/Lymphatic: Denies: Anemia, Blood Clots Past Medical History - SOCIAL HISTORY Smoking Status: Never smoker Drug Use: None - RESPIRATORY Hx Respiratory Disorders: Yes Hx Asthma: Yes - CARDIOVASCULAR Hx Cardio Disorders: No - NEURO Hx Neuro Disorders: No - GI Hx GI Disorders: Yes Hx Abdominal Pain: Yes (epigastric) Hx Reflux: Yes Hx Nausea/Vomiting: Yes Hx Wt Loss/Wt Gain: Yes - Hx Genitourinary Disorders: No - ENDOCRINE Hx Endocrine Disorders: No Hx Diabetes: No Hx Thyroid Disease: No - MUSCULOSKELETAL Hx Musculoskeletal Disorders: Yes Hx Arthritis: Yes (Bilateral knee) - PSYCH Hx Psych Problems: Yes Hx Anxiety: Yes Hx Depression: Yes - HEMATOLOGY/ONCOLOGY Hx Hematology/Oncology Disorders: No Family Medical History Hx Cancer: Mother, Grandparents Hx Heart Disease: Father, Brother/Sister H&P Meds/Allergies - Allergies Allergies: Allergies Allergy/AdvReac Type Severity Reaction Status Date / Time Penicillins Allergy Unknown RASH Verified 03/18/19 00:26 Sulfa (Sulfonamide Allergy RASH Verified 03/18/19 00:26 Antibiotics) - Home Medications Home Medications Medication Instructions Recorded Confirmed Last Taken Alprazolam 0.5 mg PO QID 03/18/19 03/18/19 Unknown Bupropion HCl [Bupropion HCl ER] 150 cap PO QHS 03/18/19 03/18/19 03/17/19 22:00 150 Folic Acid 1 mg PO DAILY 03/18/19 03/18/19 03/17/19 Methotrexate Sodium [Trexall] 2.5 mg PO DAILY 03/18/19 03/18/19 03/17/19 Omeprazole 40 cap PO BID 03/18/19 03/18/19 Unknown - Active Medications Active Medications: Current Medications Acetaminophen (Tylenol 500mg Tab) 1,000 mg PO Q6H PRN PRN Reason: PAIN - MILD(1-4)/FEVER Last Admin: 03/18/19 07:47 Dose: 1,000 mg Documented by: Alprazolam (Xanax) 0.5 mg PO QID [facility] Last Admin: 03/18/19 09:34 Dose: 0.5 mg Documented by: Citalopram Hydrobromide (Celexa) 20 mg PO DAILY [facility] Last Admin: 03/18/19 09:17 Dose: 20 mg Documented by: Clindamycin Phosphate (Cleocin 600 [id number]) 600 mg in 50 mls @ 100 mls/hr IVPB Q8H [facility] Last Infusion: 03/18/19 09:50 Dose: Infused Documented by: Levothyroxine Sodium (Synthroid) 100 mcg PO DAILYTHY [facility] Last Admin: 03/18/19 06:52 Dose: 100 mcg Documented by: Nystatin () 15 gm TOP ASDIR [facility] Physical Exam - Vital Signs Vital Signs: Vital Signs - Last 24 Hrs Temp Pulse Pulse Resp BP BP Pulse Ox 03/18/19 08:30 97.5 F L 93 H 24 131/75 03/18/19 02:05 97.8 F 89 20 140/90 97 03/18/19 01:25 98.5 F 87 20 122/71 96 03/18/19 00:20 98.3 F 97 H 18 98/64 96 - General General Appearance: Alert, Oriented x3, Cooperative, Mild distress Limitations: No limitations - Head Head exam: Atraumatic, Normocephalic, Normal inspection Head exam detail: negative: Abrasion, Contusion, Shaw's sign, General tenderness, Hematoma, Laceration - Eye Eye exam: Normal appearance. negative: Conjunctival injection, Periorbital swelling, Periorbital tenderness, Scleral icterus - ENT Ear exam: negative: Auricular hematoma, Auricular trauma Nasal Exam: negative: Active bleeding, Discharge, Dried blood, Foreign body Mouth exam: negative: Drooling, Laceration, Muffled voice, Tongue elevation - Neck Neck exam: Normal inspection. negative: Meningismus, Tenderness - Respiratory Respiratory exam: Normal lung sounds bilaterally. negative: Rales, Respiratory distress, Rhonchi, Stridor - Cardiovascular Cardiovascular Exam: Regular rate, Normal rhythm, Normal heart sounds Peripheral Pulses: 2+: Dorsalis Pedis (R), Dorsalis Pedis (L) - GI/Abdominal GI/Abdominal exam: Soft, Normal bowel sounds. negative: Rebound, Rigid, Tenderness - Rectal Rectal exam: Deferred - exam: Other (scaley erythema noted to penis and scrotum, well defined border, scattered shallow ulcerations due to scratching, scattered satellite lesions) - Extremities Extremities exam: Tenderness, Other (Erythema, warmth to the to the anterior aspect of the right lower leg, no induration or fluctuance is present on examination.). negative: Calf tenderness, Pedal edema - Back Back exam: Denies: CVA tenderness (R), CVA tenderness (L) - Neurological Neurological exam: Alert, Normal gait, Oriented X3 - Psychiatric Psychiatric exam: Normal affect, Normal mood - Skin Skin exam: Erythema (RLE knee to ankle). negative: Abrasion Type of lesion: Rash Distribution of rash: Genitals Description of rash: Erythematous, Tenderness, Urticarial Results - Labs Result Diagrams: 03/18/19 00:35 03/18/19 00:35 Labs Last 24 Hours: Laboratory Results - last 24 hr 03/18/19 03/18/19 03/18/19 00:35 00:35 00:35 WBC 15.1 H RBC 4.02 L Hgb 12.3 L Hct 38.2 L MCV 95.0 MCH 30.5 MCHC 32.2 RDW 14.8 H Plt Count 311 MPV 9.0 Neutrophils % 96.0 H Band Neutrophils % 0.0 Lymphocytes % 3.1 L Monocytes % 2.6 Eosinophils % 0.0 Basophils % 0.1 Absolute Neutrophils 14.23 Lymphocytes 2.0 L Monocytes 2.0 Basophils 0.0 Platelet Estimate Normal RBC Morphology Normal ESR 45 H Eosinophil Count 0.0 Sodium 133 L Potassium 3.6 Chloride 96 L Carbon Dioxide 22.0 Anion Gap 15.0 BUN 18 Creatinine 1.4 H Estimated GFR 55 Random Glucose 138 H Lactic Acid Cancelled 0.9 Calcium 9.0 Total Bilirubin 0.40 AST 17 ALT 18 Alkaline Phosphatase 83 C-Reactive Protein 30.23 H Total Protein 7.3 Albumin 4.0 Globulin 3.3 Albumin/Globulin Ratio 1.2 VTE H&P Assessment - Risk for VTE Risk for VTE: Yes Risk Level: Moderate Risk Assessment Date: 03/18/19 Risk Assessment Time: 12:48 VTE Orders Placed or Will Be Placed: Yes Plan - Detailed Diagnosis and Plan (1) Cellulitis of lower leg Current Visit: Yes Status: Acute Base Code: L03.119 - CELLULITIS OF UN SPECIFIED PART OF LIMB Comment: 03/18/19 - WBC 15.1 in ED, recheck in am - ESR 45, CRP 30.23 - Venous duples RLE due to recurrent cellulitis, has seen ID in the past for septic joint s/p RTKA about 5 years ago - Hx MRSA right leg (in isolation) - Clindamycin 600mg Q8hr, consider DC home in am on oral if clinical improvement and remains afebrile - May SL IV (2) Anxiety Current Visit: Yes Status: Acute Base Code: F41.9 - ANXIETY DISORDER, UNSPECIFIED Comment: 03/18/19 - Xanax 0.5mg QID per home dosing -Celexa 40mg QD (3) Hypothyroidism Current Visit: Yes Status: Acute Base Code: E03.9 - HYPOTHYROIDISM, UNSPECIFIED Comment: 03/18/19 - Levothyroxine 100mcg QD (4) Yeimy infection of genital region Current Visit: Yes Status: Acute Base Code: B37.49 - OTHER UROGENITAL CANDIDIASIS Comment: 03/18/19 - Nystatin to genitalia TID (5) DVT prophylaxis Current Visit: No Status: Acute Base Code: [id number] - Comment: 03/18/19: Lovenox 40mg SQ QD for DVT prophlyaxis (6) Full code status Current Visit: No Status: Acute Base Code: Z78.9 - OTHER SPECIFIED HEALTH STATUS Comment: 03/18/19 Patient is full code status
[2019-03-18] MEDS ORDERED: PANTOPRAZOLE SODIUM 40 MG TABLET PO PRN (16:37)
[2019-03-18] MEDS ORDERED: 0.9 % SODIUM CHLORIDE 1000ML 1,000 ML IV PRN (17:21)
--- NOTE | 2019-03-18 17:39 | ULTRASOUND REPORT ---
EXAMINATION: Right Lower Extremity Venous Duplex Doppler Ultrasound EXAM DATE: 03/18/2019 5:16 PM TECHNIQUE: Real-time B-mode imaging with and without compression was used to evaluate the right lowe r extremity for deep venous thrombosis (DVT). Duplex Doppler with color and spectral Doppler was use d. INDICATION: RLE swelling and recurrent cellulitis COMPARISON: None FINDINGS: Right Common Femoral Vein: No DVT. Right Femoral Vein: No DVT. Right Popliteal Vein: No DVT. Right Proximal Deep Femoral Vein: Eccentric thrombus identified which may reflect chronic DVT. Right Posterior Tibial Veins: No DVT. Right Peroneal Veins: No DVT. Right proximal Great Saphenous Vein: No thrombus. Duplex Doppler: Spectral Doppler waveforms show normal respiratory phasicity in the common femoral vein. Additional Findings: None. IMPRESSION: Eccentric nonocclusive thrombus in the right proximal deep femoral vein which may reflect chronic DVT . Dictated by: Curry Cano MD on 03/18/2019 5:35 PM. .
[2019-03-18] MEDS ORDERED: BUPROPION HCL 150 MG TAB.SR.12H PO SCH (22:00)
[2019-03-19] MEDS: CLINDAMYCIN 600MG/50ML PREMIX 600 MG/50 ML BAG IVPB SCH ×2 (01:16→08:18)
[2019-03-19] MEDS: LEVOTHYROXINE SODIUM 100 MCG TABLET PO SCH (06:36)
[2019-03-19 07:05] LABS: HEMATOCRIT 35.7 % (42.0-52.0); MEAN CORPUSCULAR HGB CONC 30.8 g/dl (32-36); MEAN PLATELET VOLUME 8.6 fl (7.4-10.4); PLATELET COUNT 292 K/uL (130-400); RED BLOOD COUNT 3.68 M/uL (4.40-5.70); RED CELL DISTRIBUTION WIDTH 15.1 % (11.5-14.5); WHITE BLOOD COUNT W/O DIFF 8.5 K/uL (4.2-12.2)
[2019-03-19 07:18] LABS: MEAN CORPUSCULAR HEMOGLOBIN 29.8 pg (27-33)
[2019-03-19] MEDS: ALPRAZOLAM 0.25 MG TABLET PO SCH (09:30)
[2019-03-19] MEDS: CITALOPRAM 20 MG TABLET PO SCH (09:31)
[2019-03-19] MEDS ORDERED: ENOXAPARIN 40 MG/0.4 ML SYR SQ SCH (10:00)
[2019-03-19] MEDS ORDERED: FOLIC ACID 1 MG TABLET PO SCH (10:00)
--- NOTE | 2019-03-19 12:21 | Discharge Summary ---
Providers Discharge Summary Date: 03/19/19 Date of admission: 03/18/19 01:49 Attending physician: TANVI FERRARA Primary care physician: MADHU PEDERSEN D.O. Physical Exam - Vital Signs Vital Signs: Vital Signs - Last 24 Hrs Temp Pulse Resp BP BP Pulse Ox 03/19/19 11:08 96 03/19/19 08:06 97.6 F 81 20 132/86 97 03/19/19 05:00 98.0 F 78 18 133/87 99 03/19/19 00:00 74 18 97 03/18/19 20:00 98.1 F 83 20 134/71 99 03/18/19 16:00 97.7 F 78 22 83/47 100 03/18/19 13:36 97.0 F L 93 H 18 125/84 97 - General General Appearance: Alert, Oriented x3, Cooperative Limitations: No limitations - Head Head exam: Atraumatic, Normocephalic, Normal inspection Head exam detail: negative: Abrasion, Contusion, Shaw's sign, General tenderness, Hematoma, Laceration - Eye Eye exam: Normal appearance. negative: Conjunctival injection, Periorbital swelling, Periorbital tenderness, Scleral icterus - ENT Ear exam: negative: Auricular hematoma, Auricular trauma Nasal Exam: negative: Active bleeding, Discharge, Dried blood, Foreign body Mouth exam: negative: Drooling, Laceration, Muffled voice, Tongue elevation - Neck Neck exam: Normal inspection. negative: Meningismus, Tenderness - Respiratory Respiratory exam: Normal lung sounds bilaterally. negative: Rales, Respiratory distress, Rhonchi, Stridor - Cardiovascular Cardiovascular Exam: Regular rate, Normal rhythm, Normal heart sounds Peripheral Pulses: 2+: Dorsalis Pedis (R), Dorsalis Pedis (L) - GI/Abdominal GI/Abdominal exam: Soft, Normal bowel sounds. negative: Rebound, Rigid, Tenderness - Rectal Rectal exam: Deferred - exam: Scrotal swelling, Other (scaley erythema noted to penis and scrotum, well defined border, scattered shallow ulcerations due to scratching, scattered satellite lesions) - Extremities Extremities exam: Tenderness, Other (Erythema, warmth to the to the anterior aspect of the right lower leg with mild improvement, no induration or fluctuance is present on examination.). negative: Calf tenderness, Pedal edema - Back Back exam: Denies: CVA tenderness (R), CVA tenderness (L) - Neurological Neurological exam: Alert, Normal gait, Oriented X3 - Psychiatric Psychiatric exam: Normal affect, Normal mood - Skin Skin exam: Erythema (RLE knee to ankle, erythema is receading from original skin markings on admission). negative: Abrasion Type of lesion: Rash Distribution of rash: Genitals Description of rash: Erythematous, Tenderness, Urticarial Hospitalization - Hospitalization Admission Diagnosis: Fever. Cellulitis RLE - Problem List/Discharge Diagnosis (1) Cellulitis of lower leg Current Visit: Yes Status: Acute Base Code: L03.119 - CELLULITIS OF UNSPECIFIED PART OF LIMB Comment: 03/19/19 - Afebrile over night - WBC 15.1-->8.5 this am - ESR 45, CRP 30.23 in ED - Venous duplex RLE chronic non-occlusive DVT. Is asymptomatic with no baseline RLE swelling, hyperpigmentation, ulcerations, heavy sensation. No further treatment is necessary at this time - Clindamycin 300mg Q6hr x 10 days total at discharge (2) Anxiety Current Visit: Yes Status: Acute Base Code: F41.9 - ANXIETY DISORDER, UNSPECIFIED Comment: 03/19/19 - Xanax 0.5mg QID per home dosing -Celexa 40mg QD (3) Hypothyroidism Current Visit: Yes Status: Acute Base Code: E03.9 - HYPOTHYROIDISM, UNSPECIFIED Comment: 03/19/19 - Levothyroxine 100mcg QD (4) Wes infection of genital region Current Visit: Yes Status: Acute Base Code: B37.49 - OTHER UROGENITAL CANDIDIASIS Comment: 03/19/19 - Nystatin to genitalia TID (5) DVT prophylaxis Current Visit: No Status: Acute Base Code: [id number] - Comment: 03/19/19: Lovenox 40mg SQ QD for DVT prophlyaxis (6) Full code status Current Visit: No Status: Acute Base Code: Z78.9 - OTHER SPECIFIED HEALTH STATUS Comment: 03/19/19 Patient is full code status - Hospitalization Course Disposition: Home, Self-Care Hospital Course: 63 y/o male presented to ED 03/17/19 for nausea, left AMA. It was noted he did have a fever while he was awaiting to finish the visit. He returned 18 hours later for recurrent fever and RLE pain. He does have hx of recurrent RLE cellulitis about 3-4 times per year since having a complicated right total knee replacement about 5 years ago. At that time he had to have the replaced joint removed, an antibiotic impregnated spacer was place and subsequently had a repeat right TKA. He reports had followed up with ID after that and was signed off on. 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 Past medical history includes asthma, GERD, OA bilat knees. While in ED VSS, afebrile. WBC 15.1, neutrophils 96. ESR 45. Lactic acid normal. CRP 30.23. Was admitted for IV antibiotics 03/18/19 1030- resting in bed comfortably, reports pain is under control. Denies chills. Did complain of itchy rash to genital area. 03/19/19 1045- Resting in bed comfortably, no new nursing concerns overnight, no new fevers. Venous doppler RLE reveals chronic non-occlusive DVT right femoral vein, is asymptomatic and therefore not indicated for post-thrombotic syndrome treatment. Skin wes infection noted to genitalia upon admission with some improvement over night with Nystatin use. Did have episode asymptomatic hypotension the evening prior to day of discharge which resolved with IV hydration. WBC normalized today with subsequent decrease in neutrophils over night. Hospital course uneventful. Clinical improvement since initiating Clindamycin for hx MRSA coverage. Will DC home on oral Clindamycin x 10 days total. Stable for discharge. PCP: Dr Pedersen Procedures: Imaging and X-Rays 03/18/19 12:34 VENOUS DOPPLER LOWER EXT RT [US] Stat Abnormal Labs: Abnormal Lab Results 03/18/19 03/18/19 03/19/19 Range/Units 00:35 00:35 06:52 WBC 15.1 H (4.2-12.2) K/uL RBC 4.02 L 3.68 L (4.40-5.70) M/uL Hgb 12.3 L 11.0 L (14.0-18.0) gm/dl Hct 38.2 L 35.7 L (42.0-52.0) % MCHC 30.8 L (32-36) g/dl RDW 14.8 H 15.1 H (11.5-14.5) % Neutrophils % 96.0 H 90.0 H (47-80) % Lymphocytes % 3.1 L (16-45) % Lymphocytes 2.0 L 7.0 L (16-45) % ESR 45 H (0-20) mm/hr Sodium 133 L (136-145) mmol/L Chloride 96 L (98-107) mmol/L Creatinine 1.4 H (0.7-1.2) mg/dL Random Glucose 138 H (74-109) mg/dL C-Reactive Protein 30.23 H (<0.5) mg/dL Condition at Discharge: (2) Stable Discharge Medications - Discharge Medications Prescriptions: Clindamycin HCl [Cleocin HCl] 300 mg PO Q6HR #36 capsule Nystatin 15 gm TOP ASDIR 7 Days #1 tube Home Medications: Ambulatory Orders Citalopram Hydrobromide [Citalopram HBr] 20 mg PO DAILY 10/22/15 [Last Taken 1 Day Ago ~03/17/19] Albuterol Sulfate [Proair Hfa] 1 - 2 puff IH .EVERY 4-6 HOURS PRN 10/31/15 [Last Taken 1 Day Ago ~03/17/19] Levothyroxine Sodium 100 mcg PO QAM 03/28/17 [Last Taken 1 Day Ago ~03/17/19] Alprazolam 0.5 mg PO QID 03/18/19 [Last Taken Unknown] Bupropion HCl [Bupropion HCl ER] 150 cap PO QHS 03/18/19 [Last Taken 03/17/19 22:00 150] Folic Acid 1 mg PO DAILY 03/18/19 [Last Taken 03/17/19] Methotrexate Sodium [Trexall] 2.5 mg PO DAILY 03/18/19 [Last Taken 03/17/19] Omeprazole 40 cap PO BID 03/18/19 [Last Taken Unknown] Clindamycin HCl [Cleocin HCl] 300 mg PO Q6HR #36 capsule 03/19/19 [Last Taken Unknown] Nystatin 15 gm TOP ASDIR 7 Days #1 tube 03/19/19 [Last Taken Unknown] Discharge Plan - Discharge Instructions Activity at Discharge: Increase Activity as Tolerated Diet at Discharge: Regular Diet Instructions: Cellulitis (DC) Additional Instructions: Activity: Increase Activity as Tolerated Diet: Regular Diet Follow Up: Appointment with Dr. Slava Le 03/25 at 9:30 Additional: Apply Nystatin 3X daily or as needed for itching Take Cleocin as directed and take until all medication is finished Quality Measures - Quality Measures Quality Measures: Documentation of Current Medications in Medical Record, Screening for High Blood Pressure and F/U Documented - Current Medications Quality Measure: Measure #130: Documentation of Current Medications Documentation of Current Medications: <Current Medications Documented/Reviewed> [G8427] - Blood Pressure Screening Quality Measure: Screening for High Blood Pressure and Follow-Up Documented Does Patient Have Any of the Following: No Blood Pressure Classification: Normal BP Reading Systolic Measurement: 98 Diastolic Measurement: 64 Screening for High Blood Pressure: < Normal BP, F/U Not Required > [G8783] - Elder Abuse Suspicion Index EASI Reference Information: Lee THOMAS, Broderick C, Patrizia D, Libertad Davidson.Development and validation of a tool to assist physicians identification of elder abuse: The Elder Abuse Suspicion Index (EASI ). Journal of Elder Abuse and Neglect, 2008; 20 (3): 276-300.
== END 2019-03-19 13:15 | disposition home or self-care (01) ==
LOC: ER 00:04 → MEDSURG 01:49
PROVIDERS: ADMIT Internal Medicine; ATTEND Internal Medicine
DX: M79.661 Pain in right lower leg (principal); L03.115 Cellulitis of right lower limb; R50.9 Fever, unspecified; J45.909 Unspecified asthma, uncomplicated; E03.9 Hypothyroidism, unspecified; B37.49 Other urogenital candidiasis; M17.0 Bilateral primary osteoarthritis of knee; K21.9 Gastro-esophageal reflux disease without esophagitis; F41.8 Other specified anxiety disorders; Z86.14 Personal history of Methicillin resistant Staphylococcus aureus infection
CPT/HCPCS: 80053; 83605; 85027; 85651; 86140; 94760; 96365; 96366; 99217; 99220; 99285; J1650; J3490; J7030